=== PATIENT | female | born 1990 | race Caucasian/White ===

== ENCOUNTER 2019-01-12 03:47 | Emergency (ER) | payer MEDICAID, OTHER ==
--- NOTE | 2019-01-12 06:33 | ER Document Report ---
ED General - General Chief Complaint: Chest Pain > 30 Stated Complaint: CHEST PAIN,BACK PAIN Time Seen by Provider: 01/12/19 06:28 TRAVEL OUTSIDE OF THE [place] IN LAST 30 DAYS: No - HPI Notes: 28-year-old female presenting with with a chief complaint of right flank pain radiating to right lower anterior chest and right upper quadrant abdomen. Patient has a known history of cholelithiasis and was told that she would need her gallbladder taken out about 2 years ago but never acted upon this recommendation. Onset 2 days ago. Duration is persistent/intermittent. Quality is dull. Location as stated above. Radiation to right scapula. Precipitating factors: Eating. Relieving factors: No relief with OTC meds. Severity: 10. Pertinent prior history: 3 para 2 with 1 prior ectopic . No surgery. History of "some mental health problems" including intermittent amphetamine use. Denies use of cocaine. Denies alcohol intake. Smokes about 1/4 pack of cigarettes per day. Last menses 2 weeks ago described as normal. No current contraception. - Related Data Allergies/Adverse Reactions: morphine [Morphine] Allergy (Verified 03/03/13 17:30) Home Medications: prozac 20 qd. adderall 30 bid. xanax .5 qd Past Medical History - General Information source: Patient - Social History Smoking Status: Current Every Day Smoker Chew tobacco use (# tins/day): No Frequency of alcohol use: None Drug Abuse: Methamphetamine Family History: Reviewed & Not Pertinent Patient has suicidal ideation: No Patient has homicidal ideation: No Psychiatric Medical History: Reports: Hx Bipolar Disorder, Hx Depression Past Surgical History: Reports: Hx Gynecologic Surgery - ectopic , tube removed - Immunizations Hx Diphtheria, Pertussis, Tetanus Vaccination: Yes Review of Systems - Review of Systems Notes: Constitutional: Negative for fever. HENT: Negative for sore throat. Eyes: Negative for visual changes. Cardiovascular: Right lower anterior chest pain radiating from right upper quadrant abdomen. Respiratory: Negative for shortness of breath. Gastrointestinal: As per HPI. Genitourinary: Negative for dysuria. Musculoskeletal: As per HPI.. Skin: Negative for rash. Neurological: Negative for headaches, weakness or numbness. 10 point ROS negative except as marked above and in HPI. Physical Exam - Vital signs Vitals: Temp Pulse Resp BP Pulse Ox 99.4 F 127 H 22 H 129/89 H 100 01/12/19 04:08 01/12/19 04:08 01/12/19 04:08 01/12/19 04:08 01/12/19 04:08 Notes: GENERAL: Somewhat obese female approximately stated age appearing anxious. SKIN: Good turgor no rashes. HEAD: Normocephalic atraumatic. EYES: PERRLA. Conjunctivae and sclerae clear. EARS: CANALS AND TMS CLEAR. NOSE: CLEAR. MOUTH: Moist mucosa. Poor dentition. No stridor or edema. No drooling. NECK: Supple. No masses or thyromegaly. No adenopathy. Carotids 2+ without bruits. No JVD. BACK: Symmetrical with mild right CVA tenderness. CHEST: Respirations unlabored. Breath sounds clear and symmetrical. HEART: Regular rhythm. No murmur gallop or rub. ABDOMEN: Soft, obese, without masses, organomegaly or rebound. Mild tenderness right upper quadrant. Bowel sounds normally active. No bruits. GENITALIA: Deferred. EXTREMITIES: No edema. No calf tenderness. Cap refill less than 1.5 seconds. Dorsalis pedis and posterior tibial pulses 3+ and symmetrical. NEUROLOGICAL: GCS 15. Alert and oriented x3. Normal gait. Fluent speech. Cranial nerves II through XII intact. Sensorimotor and cerebellar normal. Normal tone. PSYCHIATRIC: Anxious. Course - Re-evaluation Re-evalutation: 01/12/19 07:01 Differential diagnosis: Cholelithiasis, gastritis, urinary tract infection, musculoskeletal pain. Studies ordered include: CBC, comprehensive metabolic profile. Urine drug screen. Serum lipase. Blood alcohol. Right upper quadrant ultrasound. Initial interventions: N.p.o. IV normal saline. IV meds to include Zofran and Toradol. 01/12/19 09:05 0905 hrs. Symptomatically improved after IV fluids, Zofran and Toradol. Gallbladder ultrasound shows cholelithiasis with no ductal dilatation or wall thickening and no pericholecystic fluid present. White count 16,000. LFTs and lipase normal. Urinalysis remarkable for bacteriuria, pyuria and positive leukocyte esterase. Findings appear consistent with acute pyelonephritis. Patient will receive IV Rocephin and anticipate outpatient management. - Vital Signs Vital signs: Temp Pulse Resp BP Pulse Ox 98.8 F 127 H 19 117/69 99 11/02/19 09:03 01/12/19 04:08 01/12/19 11:02 01/12/19 11:02 01/12/19 11:02 - Laboratory Result Diagrams: 01/12/19 06:29 01/12/19 06:29 Laboratory results interpreted by me: 01/12/19 01/12/19 01/12/19 06:06 06:29 06:29 WBC 16.1 H Absolute Neuts (auto) 12.4 H Chloride 109 H Carbon Dioxide 20 L Urine Protein 100 H Urine Ketones 20 H Urine Blood LARGE H Urine Nitrite POSITIVE H Ur Leukocyte Esterase LARGE H - Diagnostic Test Radiology reviewed: Image reviewed, Reports reviewed - EKG Interpretation by Me EKG shows normal: Sinus rhythm Rate: Tachycardia Discharge - Discharge Clinical Impression: Acute pyelonephritis Condition: Stable Disposition: HOME, SELF-CARE Instructions: Pyelonephritis ([facility]) Prescriptions: Cephalexin Monohydrate [Keflex 500 mg Capsule] 500 mg PO Q6H 14 Days capsule Naproxen 500 mg PO BID PRN #14 tablet PRN Reason: Ondansetron [Zofran Odt 4 mg Tablet] 1 - 2 tab PO Q4H PRN #15 tab.rapdis PRN Reason: For Nausea/Vomiting
[2019-01-12] MEDS ORDERED: NORMAL SALINE 1000 ML 1,000 ML IV ONE (06:45)
[2019-01-12] MEDS ORDERED: KETOROLAC TROMETHAMINE INJ/PF 30 MG/1 ML SDV IV ONE (06:50)
[2019-01-12] MEDS ORDERED: ONDANSETRON HCL INJ/PF 4 MG/2 ML SDV IV ONE (06:51)
[2019-01-12 06:56] LABS: ALBUMIN 4.4 g/dL (3.5-5.0); ALKALINE PHOSPHATASE 60 U/L (38-126); ANION GAP 11 (5-19); ASPARTATE AMINO TRANSFERASE 28 U/L (14-36); BILIRUBIN,DIRECT 0.2 mg/dL (0.0-0.4); BLOOD UREA NITROGEN 9 mg/dL (7-20); CALCIUM 9.5 mg/dL (8.4-10.2); CARBON DIOXIDE 20 mmol/L (22-30); CHLORIDE 109 mmol/L (98-107); GLUCOSE 96 mg/dL (75-110); POTASSIUM 4.2 mmol/L (3.6-5.0); TOTAL PROTEIN 7.5 g/dL (6.3-8.2)
[2019-01-12 06:57] LABS: ALCOHOL < 10 mg/dL (NONE DETECTED)
[2019-01-12 06:59] LABS: ABSOLUTE BASOPHILS # (AUTO) 0.1 10^3/uL (0.0-0.2); ABSOLUTE EOSINOPHILS # (AUTO) 0.1 10^3/uL (0.0-0.6); ABSOLUTE LYMPHOCYTES (AUTO) 2.7 10^3/uL (0.5-4.7); ABSOLUTE MONOCYTES (AUTO) 0.9 10^3/uL (0.1-1.4); ABSOLUTE NEUT (AUTO) 12.4 10^3/uL (1.7-8.2); BASOPHILS % (AUTO) 0.5 % (0-2); EOSINOPHILS % (AUTO) 0.5 % (0-6); HEMATOCRIT 39.9 % (36.0-47.0); HEMOGLOBIN 13.9 g/dL (12.0-15.5); LYMPHOCYTES % (AUTO) 16.5 % (13-45); MEAN CORPUSCULAR HEMOGLOBIN 33.2 pg (27.0-33.4); MEAN CORPUSCULAR HGB CONC 34.8 g/dL (32.0-36.0); MEAN CORPUSCULAR VOLUME 96 fl (80-97); MONOCYTES % (AUTO) 5.5 % (3-13); PLATELET COUNT 229 10^3/uL (150-450); RED BLOOD COUNT 4.18 10^6/uL (3.72-5.28); RED CELL DISTRIBUTION WIDTH 13.2 % (11.5-14.0); TOTAL CELLS COUNTED % (AUTO) 100 %; WHITE BLOOD COUNT 16.1 10^3/uL (4.0-10.5)
[2019-01-12 07:18] LABS: APPEARANCE,URINE CLOUDY; BILIRUBIN,URINE NEGATIVE (NEGATIVE); COLOR,URINE YELLOW; GLUCOSE, URINE NEGATIVE (NEGATIVE); KETONES,URINE 20 mg/dL (NEGATIVE); LEUKOCYTE ESTERASE,URINE LARGE (NEGATIVE); NITRITE,URINE POSITIVE (NEGATIVE); PROTEIN,URINE 100 mg/dL (NEGATIVE); URINE SPECIFIC GRAVITY 1.013; UROBILINOGEN,URINE NEGATIVE mg/dL (<2.0)
[2019-01-12 07:33] LABS: URINE BARBITURATES SCREEN NEGATIVE; URINE BENZODIAZEPINES SCREEN UNCONFIRMED POSITIVE; URINE COCAINE SCREEN NEGATIVE; URINE MARIJUANA (THC) SCREEN NEGATIVE; URINE METHADONE SCREEN NEGATIVE; URINE PHENCYCLIDINE SCREEN NEGATIVE
--- NOTE | 2019-01-12 07:44 | RADIOLOGY REPORT (SQ) ---
EXAM DESCRIPTION: US ABDOMEN COMPLETED DATE/TME: 01/12/2019 06:41 CLINICAL HISTORY: Abd pain with h/o cholelithiasis COMPARISON: None. TECHNIQUE: Real-time sonographic images of the abdomen were obtained using a curved multihertz transducer. FINDINGS: The visualized portions of the pancreas are unremarkable. The visualized portions of the aorta and IVC are unremarkable. The liver has normal contour and echogenicity. The common bile duct measures 0.3 cm. Hepatopedal flow in the portal vein. Multiple mobile echogenic structures with posterior shadowing in the gallbladder lumen. Normal gallbladder wall thickness. No pericholecystic fluid. Negative reported sonographic Padilla sign. The right kidney measures 12.2 cm in length. The left kidney measures 11.7 cm in length. No solid renal mass, shadowing renal calculi, or hydronephrosis. The spleen measures 12.6 cm in length.No abnormality of the spleen identified. IMPRESSION: 1. Cholelithiasis without other ultrasound evidence of acute cholecystitis. 2. Splenomegaly.
[2019-01-12] MEDS ORDERED: CEFTRIAXONE 1 GM/D5W RTU 1 GM/50 ML RTUPB IV ONE (09:07)
[2019-01-12 11:30] VITALS: BP 117/69
--- NOTE | 2019-01-13 21:38 | EKG REPORT ---
SEVERITY:- OTHERWISE NORMAL ECG - SINUS TACHYCARDIA : Confirmed by: Jarad Warner MD 13-Jan-2019 21:38:03
== END 2019-01-12 11:49 | disposition home or self-care (01) ==
LOC: ER 03:47
DX: N10 Acute pyelonephritis (principal); R07.9 Chest pain, unspecified; R10.9 Unspecified abdominal pain; F17.210 Nicotine dependence, cigarettes, uncomplicated; E66.9 Obesity, unspecified; Z88.6 Allergy status to analgesic agent
CPT/HCPCS: 93005; 36415; 80307 ×2; 83690; 85025; 81025; 80053; 81001; 76700; 93010; J1885; J2405; J7030; J0696